=== PATIENT | male | born 1970 | race Caucasian/White ===

== ENCOUNTER → 2016-08-05 | Outpatient (CLI) | payer OTHER ==
[~2016-08-05] MED LIST: ACET-2267 PO; IBUP-2055 PO; OXCA600T3 PO
== END ==
LOC: RAD 10:55
DX: S61.200A Unspecified open wound of right index finger without damage to nail, initial encounter (principal); X58.XXXA Exposure to other specified factors, initial encounter; Y92.63 Factory as the place of occurrence of the external cause; Y99.0 Civilian activity done for income or pay

== ENCOUNTER → 2016-08-09 | Outpatient (CLI) | payer OTHER ==
--- NOTE | 2016-08-09 16:54 | Diagnostic Imaging Report ---
INDICATION: Occupational exposure for MRI. FINDINGS: AP and lateral views of the skull were obtained. There is no metallic foreign body over the orbits. There is no overt bony abnormality. IMPRESSION: No metallic foreign body over the orbits. No overt bony abnormality. Dictated by: Dictated on workstation # [id number]
== END ==
LOC: RAD 16:19
DX: Z57.8 Occupational exposure to other risk factors (principal)
CPT/HCPCS: 70250